=== PATIENT | male | born 1950 | race Caucasian/White ===

== ENCOUNTER 2020-02-03 02:43 | Inpatient (IN) | payer OTHER ==
[~2020-02-03] VITALS: Ht 167.6 cm; Wt 82.4 kg
[2020-02-03] VITALS (11 sets, daily range): BP systolic 81–200; BP diastolic 54–110
[2020-02-03] MEDS ORDERED: ASPIR 8181 MG PO (03:23)
[2020-02-03] MEDS ORDERED: ENALAPRIL MALEA20 MG PO (03:24)
[2020-02-03] MEDS ORDERED: ATORVASTATIN CA40 M1 PO (03:24)
[2020-02-03 03:29] LABS: BASOPHIL % 0.3 % (0-2); PLATELET COUNT 269 x10^3mcL (130-400); RED CELL DISTRIBUTION WIDTH 13.8 % (11.5-14.5)
[2020-02-03 03:39] LABS: UA SPECIFIC GRAVITY 1.025 (1.005-1.035); microscopic required? YES; urine erythrocyte NEGATIVE (NEGATIVE)
[2020-02-03 04:05] LABS: CALCIUM 7.7 mg/dL (8.5-10.1); CARBON DIOXIDE 25.5 mmol/L (21-32); CHLORIDE SERUM 99 mmol/L (98-107); CREATININE SERUM 1.4 mg/dL (0.7-1.3); GFR1 53 mL/min; GLUCOSE SERUM 155 mg/dL (74-106); POTASSIUM SERUM 4.1 mmol/L (3.5-5.1); SODIUM SERUM 135 mmol/L (136-145)
[2020-02-03 04:09] LABS: ALKALINE PHOSPHATASE 110 U/L (46-116); ALT/SGPT 54 U/L (16-63); AST/SGOT 79 U/L (15-37); BILIRUBIN TOTAL 1.1 mg/dL (0.20-1.00); TOTAL PROTEIN, SERUM 7.3 g/dL (6.4-8.2)
[2020-02-03 04:11] LABS: ALBUMIN 2.8 g/dL (3.4-5.0); LACTIC DEHYDROGENASE (LDH) 867 U/L (100-190)
[2020-02-04] VITALS (18 sets, daily range): BP systolic 81–159; BP diastolic 53–86
[2020-02-04 05:22] LABS: BASOPHIL % 0.1 % (0-2); PLATELET COUNT 139 x10^3mcL (130-400); RED CELL DISTRIBUTION WIDTH 13.9 % (11.5-14.5)
[2020-02-04 05:34] LABS: CALCIUM 7.2 mg/dL (8.5-10.1); CARBON DIOXIDE 23.7 mmol/L (21-32); CHLORIDE SERUM 105 mmol/L (98-107); CREATININE SERUM 1.1 mg/dL (0.7-1.3); GFR1 > 60 mL/min; GLUCOSE SERUM 128 mg/dL (74-106); MAGNESIUM 2.4 mg/dL (1.8-2.4); PHOSPHOROUS 2.7 mg/dL (2.5-4.9); POTASSIUM SERUM 4.5 mmol/L (3.5-5.1); SODIUM SERUM 137 mmol/L (136-145)
[2020-02-05] VITALS (17 sets, daily range): BP systolic 85–166; BP diastolic 55–85
[2020-02-05 06:00] LABS: PLATELET COUNT 182 x10^3mcL (130-400)
[2020-02-05 06:02] LABS: CALCIUM 7.5 mg/dL (8.5-10.1); CHLORIDE SERUM 105 mmol/L (98-107); GFR1 > 60 mL/min; GLUCOSE SERUM 188 mg/dL (74-106); SODIUM SERUM 139 mmol/L (136-145)
[2020-02-05 06:06] LABS: BASOPHIL % 0 % (0-2)
[2020-02-06] VITALS (18 sets, daily range): BP systolic 86–139; BP diastolic 49–68
[2020-02-06 05:18] LABS: PLATELET COUNT 217 x10^3mcL (130-400); RED CELL DISTRIBUTION WIDTH 14.1 % (11.5-14.5)
[2020-02-06 05:19] LABS: BASOPHIL % 0 % (0-2)
[2020-02-06 05:31] LABS: CALCIUM 7.6 mg/dL (8.5-10.1); CARBON DIOXIDE 28.9 mmol/L (21-32); CHLORIDE SERUM 107 mmol/L (98-107); CREATININE SERUM 1.2 mg/dL (0.7-1.3); GFR1 > 60 mL/min; GLUCOSE SERUM 233 mg/dL (74-106); POTASSIUM SERUM 4.6 mmol/L (3.5-5.1); SODIUM SERUM 141 mmol/L (136-145)
[2020-02-06 05:43] LABS: BILIRUBIN DIRECT 0.38 mg/dL (0.0-0.2); BILIRUBIN TOTAL 0.64 mg/dL (0.20-1.00)
[2020-02-06 05:53] LABS: TOTAL PROTEIN, SERUM 5.7 g/dL (6.4-8.2)
[2020-02-07] VITALS (16 sets, daily range): BP systolic 91–150; BP diastolic 50–73
[2020-02-07 05:12] LABS: CALCIUM 7.5 mg/dL (8.5-10.1); CARBON DIOXIDE 28.7 mmol/L (21-32); CHLORIDE SERUM 109 mmol/L (98-107); CREATININE SERUM 1.2 mg/dL (0.7-1.3); GFR1 > 60 mL/min; GLUCOSE SERUM 242 mg/dL (74-106); POTASSIUM SERUM 4.4 mmol/L (3.5-5.1); SODIUM SERUM 144 mmol/L (136-145)
[2020-02-07 05:18] LABS: BASOPHIL % 0.2 % (0-2); PLATELET COUNT 243 x10^3mcL (130-400); RED CELL DISTRIBUTION WIDTH 13.9 % (11.5-14.5)
[2020-02-08] VITALS (18 sets, daily range): BP systolic 90–175; BP diastolic 50–100
[2020-02-08 06:36] LABS: PLATELET COUNT 277 x10^3mcL (130-400); RED CELL DISTRIBUTION WIDTH 14.1 % (11.5-14.5)
[2020-02-08 06:42] LABS: BASOPHIL % 0 % (0-2)
[2020-02-08 07:11] LABS: CALCIUM 7.6 mg/dL (8.5-10.1); CARBON DIOXIDE 26.4 mmol/L (21-32); CHLORIDE SERUM 110 mmol/L (98-107); CREATININE SERUM 1.2 mg/dL (0.7-1.3); GFR1 > 60 mL/min; GLUCOSE SERUM 324 mg/dL (74-106); POTASSIUM SERUM 4.5 mmol/L (3.5-5.1); SODIUM SERUM 147 mmol/L (136-145)
[2020-02-09] VITALS (17 sets, daily range): BP systolic 92–189; BP diastolic 63–99
[2020-02-09 04:59] LABS: PLATELET COUNT 292 x10^3mcL (130-400); RED CELL DISTRIBUTION WIDTH 14.4 % (11.5-14.5)
[2020-02-09 05:01] LABS: BASOPHIL % 0 % (0-2)
[2020-02-09 05:14] LABS: CALCIUM 8.1 mg/dL (8.5-10.1); CARBON DIOXIDE 26.8 mmol/L (21-32); CHLORIDE SERUM 113 mmol/L (98-107); CREATININE SERUM 1.1 mg/dL (0.7-1.3); GFR1 > 60 mL/min; GLUCOSE SERUM 418 mg/dL (74-106); POTASSIUM SERUM 4.9 mmol/L (3.5-5.1); SODIUM SERUM 148 mmol/L (136-145)
[2020-02-10] VITALS (17 sets, daily range): BP systolic 99–186; BP diastolic 56–87
[2020-02-10 06:48] LABS: BASOPHIL % 0.2 % (0-2); PLATELET COUNT 276 x10^3mcL (130-400)
[2020-02-10 07:24] LABS: CALCIUM 7.9 mg/dL (8.5-10.1); CARBON DIOXIDE 29.7 mmol/L (21-32); CHLORIDE SERUM 112 mmol/L (98-107); CREATININE SERUM 1.1 mg/dL (0.7-1.3); GFR1 > 60 mL/min; SODIUM SERUM 148 mmol/L (136-145)
[2020-02-10 07:43] LABS: RED CELL DISTRIBUTION WIDTH 14.8 % (11.5-14.5)
[2020-02-10 07:53] LABS: GLUCOSE SERUM 462 mg/dL (74-106)
[2020-02-11] VITALS (20 sets, daily range): BP systolic 101–187; BP diastolic 60–94
[2020-02-11 06:33] LABS: BASOPHIL % 0.2 % (0-2); PLATELET COUNT 339 x10^3mcL (130-400)
[2020-02-11 06:36] LABS: CALCIUM 8.1 mg/dL (8.5-10.1); CARBON DIOXIDE 30.9 mmol/L (21-32); CHLORIDE SERUM 116 mmol/L (98-107); CREATININE SERUM 1.1 mg/dL (0.7-1.3); GFR1 > 60 mL/min; GLUCOSE SERUM 369 mg/dL (74-106); POTASSIUM SERUM 4.7 mmol/L (3.5-5.1); SODIUM SERUM 153 mmol/L (136-145)
[2020-02-11 06:49] LABS: RED CELL DISTRIBUTION WIDTH 14.7 % (11.5-14.5)
[2020-02-12] VITALS (17 sets, daily range): BP systolic 98–172; BP diastolic 59–82
[2020-02-12 05:56] LABS: BASOPHIL % 0.4 % (0-2); PLATELET COUNT 326 x10^3mcL (130-400)
[2020-02-12 06:04] LABS: RED CELL DISTRIBUTION WIDTH 14.9 % (11.5-14.5)
[2020-02-12 06:15] LABS: CALCIUM 7.9 mg/dL (8.5-10.1); CARBON DIOXIDE 30.2 mmol/L (21-32); CHLORIDE SERUM 115 mmol/L (98-107); CREATININE SERUM 0.9 mg/dL (0.7-1.3); GFR1 > 60 mL/min; GLUCOSE SERUM 318 mg/dL (74-106); POTASSIUM SERUM 4.5 mmol/L (3.5-5.1); SODIUM SERUM 151 mmol/L (136-145)
[2020-02-13] VITALS (19 sets, daily range): BP systolic 117–173; BP diastolic 61–89
[2020-02-13 05:03] LABS: PLATELET COUNT 264 x10^3mcL (130-400)
[2020-02-13 05:04] LABS: BASOPHIL % 4.6 % (0-2); RED CELL DISTRIBUTION WIDTH 14.9 % (11.5-14.5)
[2020-02-13 05:10] LABS: CALCIUM 8.4 mg/dL (8.5-10.1); CARBON DIOXIDE 31.1 mmol/L (21-32); CHLORIDE SERUM 116 mmol/L (98-107); CREATININE SERUM 0.9 mg/dL (0.7-1.3); GFR1 > 60 mL/min; GLUCOSE SERUM 356 mg/dL (74-106); SODIUM SERUM 150 mmol/L (136-145)
[2020-02-14] VITALS (17 sets, daily range): BP systolic 91–137; BP diastolic 53–71
[2020-02-14 05:29] LABS: PLATELET COUNT 241 x10^3mcL (130-400)
[2020-02-14 05:43] LABS: CALCIUM 8.3 mg/dL (8.5-10.1); CARBON DIOXIDE 30.6 mmol/L (21-32); CHLORIDE SERUM 116 mmol/L (98-107); CREATININE SERUM 0.9 mg/dL (0.7-1.3); GFR1 > 60 mL/min; GLUCOSE SERUM 382 mg/dL (74-106); POTASSIUM SERUM 5.2 mmol/L (3.5-5.1); SODIUM SERUM 150 mmol/L (136-145)
[2020-02-14 05:46] LABS: BASOPHIL % 0 % (0-2); RED CELL DISTRIBUTION WIDTH 14.7 % (11.5-14.5)
[2020-02-15] VITALS (18 sets, daily range): BP systolic 94–151; BP diastolic 54–86
[2020-02-15 05:26] LABS: BASOPHIL % 0.4 % (0-2); PLATELET COUNT 205 x10^3mcL (130-400)
[2020-02-15 05:40] LABS: CARBON DIOXIDE 30.2 mmol/L (21-32); CHLORIDE SERUM 116 mmol/L (98-107); GFR1 > 60 mL/min; GLUCOSE SERUM 347 mg/dL (74-106); POTASSIUM SERUM 4.6 mmol/L (3.5-5.1); SODIUM SERUM 150 mmol/L (136-145)
[2020-02-16] VITALS (17 sets, daily range): BP systolic 90–152; BP diastolic 50–72
[2020-02-16 05:17] LABS: BASOPHIL % 0.1 % (0-2); PLATELET COUNT 210 x10^3mcL (130-400)
[2020-02-16 05:18] LABS: RED CELL DISTRIBUTION WIDTH 14.9 % (11.5-14.5)
[2020-02-16 05:31] LABS: CALCIUM 8.2 mg/dL (8.5-10.1); CARBON DIOXIDE 29.3 mmol/L (21-32); CHLORIDE SERUM 117 mmol/L (98-107); CREATININE SERUM 0.9 mg/dL (0.7-1.3); GFR1 > 60 mL/min; GLUCOSE SERUM 308 mg/dL (74-106); POTASSIUM SERUM 4.5 mmol/L (3.5-5.1); SODIUM SERUM 150 mmol/L (136-145)
[2020-02-17] VITALS (18 sets, daily range): BP systolic 104–142; BP diastolic 57–74
[2020-02-17 05:43] LABS: BASOPHIL % 0.7 % (0-2); PLATELET COUNT 211 x10^3mcL (130-400)
[2020-02-17 06:00] LABS: CARBON DIOXIDE 29.6 mmol/L (21-32); CHLORIDE SERUM 114 mmol/L (98-107); CREATININE SERUM 0.8 mg/dL (0.7-1.3); GFR1 > 60 mL/min; GLUCOSE SERUM 264 mg/dL (74-106); POTASSIUM SERUM 4.3 mmol/L (3.5-5.1); SODIUM SERUM 147 mmol/L (136-145)
[2020-02-18] VITALS (14 sets, daily range): BP systolic 94–157; BP diastolic 53–77; Ht 167.6 cm; Wt 82.4 kg
[2020-02-18 05:22] LABS: CALCIUM 7.7 mg/dL (8.5-10.1); CARBON DIOXIDE 28.6 mmol/L (21-32); CHLORIDE SERUM 111 mmol/L (98-107); CREATININE SERUM 0.8 mg/dL (0.7-1.3); GFR1 > 60 mL/min; GLUCOSE SERUM 310 mg/dL (74-106); POTASSIUM SERUM 4.4 mmol/L (3.5-5.1); SODIUM SERUM 142 mmol/L (136-145)
[2020-02-18 05:46] LABS: BASOPHIL % 0.1 % (0-2); PLATELET COUNT 178 x10^3mcL (130-400)
[2020-02-18 05:51] LABS: RED CELL DISTRIBUTION WIDTH 15.5 % (11.5-14.5)
[2020-02-19] VITALS (18 sets, daily range): BP systolic 74–168; BP diastolic 42–66
[2020-02-19 06:16] LABS: BASOPHIL % 0 % (0-2); PLATELET COUNT 122 x10^3mcL (130-400); RED CELL DISTRIBUTION WIDTH 15.2 % (11.5-14.5)
[2020-02-19 06:27] LABS: C REACTIVE PROTEIN 2.2 mg/dL (<=0.9); CALCIUM 7.4 mg/dL (8.5-10.1); CARBON DIOXIDE 25.3 mmol/L (21-32); CHLORIDE SERUM 105 mmol/L (98-107); CREATININE SERUM 0.7 mg/dL (0.7-1.3); GFR1 > 60 mL/min; POTASSIUM SERUM 3.7 mmol/L (3.5-5.1); SODIUM SERUM 136 mmol/L (136-145)
[2020-02-19 06:59] LABS: GLUCOSE SERUM 487 mg/dL (74-106)
[2020-02-20] VITALS (18 sets, daily range): BP systolic 98–180; BP diastolic 35–74
[2020-02-20 05:00] LABS: CALCIUM 7.6 mg/dL (8.5-10.1); CARBON DIOXIDE 28.9 mmol/L (21-32); CHLORIDE SERUM 110 mmol/L (98-107); GFR1 > 60 mL/min; GLUCOSE SERUM 296 mg/dL (74-106); POTASSIUM SERUM 4.3 mmol/L (3.5-5.1); SODIUM SERUM 141 mmol/L (136-145)
[2020-02-20 05:18] LABS: BASOPHIL % 0.1 % (0-2); PLATELET COUNT 186 x10^3mcL (130-400)
[2020-02-20 05:38] LABS: RED CELL DISTRIBUTION WIDTH 15.2 % (11.5-14.5)
[2020-02-21] VITALS (18 sets, daily range): BP systolic 101–117; BP diastolic 46–63
[2020-02-21 05:06] LABS: PLATELET COUNT 142 x10^3mcL (130-400)
[2020-02-21 05:15] LABS: CALCIUM 7.7 mg/dL (8.5-10.1); CARBON DIOXIDE 29.5 mmol/L (21-32); CHLORIDE SERUM 111 mmol/L (98-107); CREATININE SERUM 0.9 mg/dL (0.7-1.3); GFR1 > 60 mL/min; GLUCOSE SERUM 317 mg/dL (74-106); SODIUM SERUM 142 mmol/L (136-145)
[2020-02-21 05:16] LABS: BASOPHIL % 0 % (0-2); RED CELL DISTRIBUTION WIDTH 15.6 % (11.5-14.5)
[2020-02-22] VITALS (16 sets, daily range): BP systolic 97–128; BP diastolic 45–58
[2020-02-22 06:15] LABS: PLATELET COUNT 176 x10^3mcL (130-400)
[2020-02-22 06:23] LABS: CALCIUM 7.8 mg/dL (8.5-10.1); CARBON DIOXIDE 29.7 mmol/L (21-32); CHLORIDE SERUM 111 mmol/L (98-107); CREATININE SERUM 1.1 mg/dL (0.7-1.3); GFR1 > 60 mL/min; GLUCOSE SERUM 248 mg/dL (74-106); POTASSIUM SERUM 4.7 mmol/L (3.5-5.1); SODIUM SERUM 144 mmol/L (136-145)
[2020-02-22 13:47] LABS: SEGMENTED NEUTROPHILS 90 % (37-75)
[2020-02-22 13:48] LABS: BAND NEUTROPHIL 3 % (0-10); MONOCYTE 2 % (0-7); PLATELET MORPHOLOGY LARGE PLATELET SEEN; rbc morphology (normal/abnorm) ABNORMAL (NORMAL)
[2020-02-23] VITALS (15 sets, daily range): BP systolic 94–124; BP diastolic 44–62
[2020-02-23 09:15] LABS: BASOPHIL % 0.1 % (0-2); PLATELET COUNT 132 x10^3mcL (130-400)
[2020-02-23 09:18] LABS: RED CELL DISTRIBUTION WIDTH 16.7 % (11.5-14.5)
[2020-02-23 09:46] LABS: CALCIUM 7.7 mg/dL (8.5-10.1); CARBON DIOXIDE 29.1 mmol/L (21-32); CHLORIDE SERUM 115 mmol/L (98-107); CREATININE SERUM 0.8 mg/dL (0.7-1.3); GFR1 > 60 mL/min; GLUCOSE SERUM 223 mg/dL (74-106); MAGNESIUM 2.3 mg/dL (1.8-2.4); PHOSPHOROUS 2.9 mg/dL (2.5-4.9); POTASSIUM SERUM 4.3 mmol/L (3.5-5.1); SODIUM SERUM 147 mmol/L (136-145)
[2020-02-24] VITALS (15 sets, daily range): BP systolic 94–119; BP diastolic 44–56
[2020-02-24 05:55] LABS: BASOPHIL % 0 % (0-2); PLATELET COUNT 121 x10^3mcL (130-400); RED CELL DISTRIBUTION WIDTH 16.8 % (11.5-14.5)
[2020-02-24 05:55] LABS: microscopic required? NO
[2020-02-24 06:33] LABS: UA SPECIFIC GRAVITY 1.025 (1.005-1.035); urine erythrocyte NEGATIVE (NEGATIVE)
[2020-02-24 09:50] LABS: CALCIUM 7.1 mg/dL (8.5-10.1); CARBON DIOXIDE 27.7 mmol/L (21-32); CHLORIDE SERUM 112 mmol/L (98-107); CREATININE SERUM 0.9 mg/dL (0.7-1.3); GFR1 > 60 mL/min; GLUCOSE SERUM 351 mg/dL (74-106); POTASSIUM SERUM 5.1 mmol/L (3.5-5.1); SODIUM SERUM 146 mmol/L (136-145)
[2020-02-25] VITALS (17 sets, daily range): BP systolic 95–199; BP diastolic 53–80
[2020-02-25 06:13] LABS: BASOPHIL % 1.4 % (0-2); PLATELET COUNT 131 x10^3mcL (130-400)
[2020-02-25 06:53] LABS: CALCIUM 7.3 mg/dL (8.5-10.1); CARBON DIOXIDE 28.9 mmol/L (21-32); CHLORIDE SERUM 112 mmol/L (98-107); CREATININE SERUM 0.8 mg/dL (0.7-1.3); GFR1 > 60 mL/min; GLUCOSE SERUM 302 mg/dL (74-106); POTASSIUM SERUM 4.4 mmol/L (3.5-5.1); SODIUM SERUM 147 mmol/L (136-145)
[2020-02-25 07:10] LABS: RED CELL DISTRIBUTION WIDTH 18.1 % (11.5-14.5)
[2020-02-26] VITALS (15 sets, daily range): BP systolic 107–128; BP diastolic 46–59
[2020-02-26 06:47] LABS: BASOPHIL % 0.1 % (0-2); PLATELET COUNT 137 x10^3mcL (130-400)
[2020-02-26 06:49] LABS: CALCIUM 7.6 mg/dL (8.5-10.1); CARBON DIOXIDE 30.1 mmol/L (21-32); CHLORIDE SERUM 111 mmol/L (98-107); CREATININE SERUM 0.9 mg/dL (0.7-1.3); GFR1 > 60 mL/min; GLUCOSE SERUM 245 mg/dL (74-106); POTASSIUM SERUM 4.7 mmol/L (3.5-5.1); SODIUM SERUM 145 mmol/L (136-145)
[2020-02-26 07:23] LABS: RED CELL DISTRIBUTION WIDTH 17.6 % (11.5-14.5)
[2020-02-27] VITALS (13 sets, daily range): BP systolic 92–128; BP diastolic 48–59
[2020-02-27 05:50] LABS: CALCIUM 7.5 mg/dL (8.5-10.1); CARBON DIOXIDE 32.3 mmol/L (21-32); CHLORIDE SERUM 110 mmol/L (98-107); CREATININE SERUM 0.8 mg/dL (0.7-1.3); GFR1 > 60 mL/min; GLUCOSE SERUM 228 mg/dL (74-106); POTASSIUM SERUM 4.4 mmol/L (3.5-5.1); SODIUM SERUM 145 mmol/L (136-145)
[2020-02-27 06:11] LABS: BASOPHIL % 0 % (0-2); PLATELET COUNT 149 x10^3mcL (130-400); RED CELL DISTRIBUTION WIDTH 18.1 % (11.5-14.5)
[2020-02-28] VITALS (14 sets, daily range): BP systolic 104–160; BP diastolic 48–69
[2020-02-28 06:10] LABS: CALCIUM 7.5 mg/dL (8.5-10.1); CARBON DIOXIDE 32.1 mmol/L (21-32); CHLORIDE SERUM 109 mmol/L (98-107); CREATININE SERUM 0.7 mg/dL (0.7-1.3); GFR1 > 60 mL/min; GLUCOSE SERUM 213 mg/dL (74-106); SODIUM SERUM 144 mmol/L (136-145)
[2020-02-28 06:19] LABS: BASOPHIL % 0.1 % (0-2); PLATELET COUNT 175 x10^3mcL (130-400); RED CELL DISTRIBUTION WIDTH 17.7 % (11.5-14.5)
[2020-02-29] VITALS (15 sets, daily range): BP systolic 105–144; BP diastolic 54–74
[2020-02-29 07:33] LABS: BASOPHIL % 0.6 % (0-2); PLATELET COUNT 175 x10^3mcL (130-400)
[2020-02-29 07:52] LABS: CALCIUM 7.3 mg/dL (8.5-10.1); CARBON DIOXIDE 29.2 mmol/L (21-32); CHLORIDE SERUM 108 mmol/L (98-107); CREATININE SERUM 0.6 mg/dL (0.7-1.3); GFR1 > 60 mL/min; GLUCOSE SERUM 217 mg/dL (74-106); POTASSIUM SERUM 4.3 mmol/L (3.5-5.1); SODIUM SERUM 142 mmol/L (136-145)
[2020-02-29 07:54] LABS: RED CELL DISTRIBUTION WIDTH 18.7 % (11.5-14.5)
[2020-03-01] VITALS (15 sets, daily range): BP systolic 92–154; BP diastolic 49–79
[2020-03-01 06:36] LABS: BASOPHIL % 0.2 % (0-2); PLATELET COUNT 225 x10^3mcL (130-400)
[2020-03-01 06:48] LABS: CALCIUM 7.6 mg/dL (8.5-10.1); CARBON DIOXIDE 32.6 mmol/L (21-32); CHLORIDE SERUM 102 mmol/L (98-107); CREATININE SERUM 0.6 mg/dL (0.7-1.3); GFR1 > 60 mL/min; GLUCOSE SERUM 171 mg/dL (74-106); POTASSIUM SERUM 3.6 mmol/L (3.5-5.1); SODIUM SERUM 138 mmol/L (136-145)
[2020-03-01 07:00] LABS: RED CELL DISTRIBUTION WIDTH 19.2 % (11.5-14.5)
[2020-03-02] VITALS (14 sets, daily range): BP systolic 132–154; BP diastolic 61–88
[2020-03-02 06:25] LABS: BASOPHIL % 0.2 % (0-2); PLATELET COUNT 239 x10^3mcL (130-400)
[2020-03-02 06:37] LABS: CALCIUM 7.5 mg/dL (8.5-10.1); CARBON DIOXIDE 31.9 mmol/L (21-32); CHLORIDE SERUM 103 mmol/L (98-107); CREATININE SERUM 0.5 mg/dL (0.7-1.3); GFR1 > 60 mL/min; GLUCOSE SERUM 148 mg/dL (74-106); POTASSIUM SERUM 3.9 mmol/L (3.5-5.1); SODIUM SERUM 137 mmol/L (136-145)
[2020-03-02 07:14] LABS: RED CELL DISTRIBUTION WIDTH 19.3 % (11.5-14.5)
[2020-03-03] VITALS (17 sets, daily range): BP systolic 94–137; BP diastolic 46–75
[2020-03-03 05:46] LABS: BASOPHIL % 0.1 % (0-2); PLATELET COUNT 242 x10^3mcL (130-400)
[2020-03-03 05:47] LABS: RED CELL DISTRIBUTION WIDTH 19.4 % (11.5-14.5)
[2020-03-03 06:17] LABS: ALKALINE PHOSPHATASE 87 U/L (46-116); ALT/SGPT 57 U/L (16-63); AST/SGOT 29 U/L (15-37); BILIRUBIN TOTAL 0.37 mg/dL (0.20-1.00); CALCIUM 7.3 mg/dL (8.5-10.1); CARBON DIOXIDE 31.9 mmol/L (21-32); CHLORIDE SERUM 105 mmol/L (98-107); CREATININE SERUM 0.6 mg/dL (0.7-1.3); GFR1 > 60 mL/min; GLUCOSE SERUM 160 mg/dL (74-106); POTASSIUM SERUM 4.4 mmol/L (3.5-5.1); SODIUM SERUM 137 mmol/L (136-145)
[2020-03-03 06:18] LABS: ALBUMIN 1.5 g/dL (3.4-5.0); TOTAL PROTEIN, SERUM 5.2 g/dL (6.4-8.2)
[2020-03-04] VITALS (16 sets, daily range): BP systolic 92–137; BP diastolic 52–72
[2020-03-04 06:06] LABS: PLATELET COUNT 247 x10^3mcL (130-400)
[2020-03-04 06:17] LABS: BASOPHIL % 0 % (0-2); RED CELL DISTRIBUTION WIDTH 19.9 % (11.5-14.5)
[2020-03-04 06:18] LABS: CALCIUM 7.3 mg/dL (8.5-10.1); CARBON DIOXIDE 33.1 mmol/L (21-32); CHLORIDE SERUM 104 mmol/L (98-107); CREATININE SERUM 0.5 mg/dL (0.7-1.3); GFR1 > 60 mL/min; GLUCOSE SERUM 165 mg/dL (74-106); POTASSIUM SERUM 3.8 mmol/L (3.5-5.1); SODIUM SERUM 138 mmol/L (136-145)
[2020-03-05] VITALS (16 sets, daily range): BP systolic 108–155; BP diastolic 60–82
[2020-03-05 05:33] LABS: BASOPHIL % 0.4 % (0-2); PLATELET COUNT 278 x10^3mcL (130-400); RED CELL DISTRIBUTION WIDTH 20.1 % (11.5-14.5)
[2020-03-05 05:45] LABS: CALCIUM 7.2 mg/dL (8.5-10.1); CARBON DIOXIDE 33.1 mmol/L (21-32); CHLORIDE SERUM 107 mmol/L (98-107); CREATININE SERUM 0.5 mg/dL (0.7-1.3); GFR1 > 60 mL/min; GLUCOSE SERUM 76 mg/dL (74-106); POTASSIUM SERUM 4.1 mmol/L (3.5-5.1); SODIUM SERUM 141 mmol/L (136-145)
[2020-03-06] VITALS (15 sets, daily range): BP systolic 91–159; BP diastolic 54–78
[2020-03-06 05:45] LABS: CALCIUM 7.5 mg/dL (8.5-10.1); CHLORIDE SERUM 106 mmol/L (98-107); CREATININE SERUM 0.6 mg/dL (0.7-1.3); GFR1 > 60 mL/min; GLUCOSE SERUM 147 mg/dL (74-106); POTASSIUM SERUM 4.3 mmol/L (3.5-5.1); SODIUM SERUM 140 mmol/L (136-145)
[2020-03-06 05:51] LABS: BASOPHIL % 0.3 % (0-2); PLATELET COUNT 303 x10^3mcL (130-400); RED CELL DISTRIBUTION WIDTH 20.2 % (11.5-14.5)
[2020-03-07] VITALS (14 sets, daily range): BP systolic 86–114; BP diastolic 48–74
[2020-03-07 06:39] LABS: BASOPHIL % 0.3 % (0-2); PLATELET COUNT 310 x10^3mcL (130-400)
[2020-03-07 07:07] LABS: CALCIUM 7.7 mg/dL (8.5-10.1); CARBON DIOXIDE 34.4 mmol/L (21-32); CHLORIDE SERUM 107 mmol/L (98-107); CREATININE SERUM 0.5 mg/dL (0.7-1.3); GFR1 > 60 mL/min; GLUCOSE SERUM 75 mg/dL (74-106); POTASSIUM SERUM 3.8 mmol/L (3.5-5.1); SODIUM SERUM 144 mmol/L (136-145)
[2020-03-08] VITALS (14 sets, daily range): BP systolic 91–137; BP diastolic 55–74
[2020-03-08 06:14] LABS: BASOPHIL % 0.3 % (0-2); PLATELET COUNT 298 x10^3mcL (130-400); RED CELL DISTRIBUTION WIDTH 19.5 % (11.5-14.5)
[2020-03-08 06:57] LABS: CALCIUM 7.5 mg/dL (8.5-10.1); CHLORIDE SERUM 105 mmol/L (98-107); CREATININE SERUM 0.5 mg/dL (0.7-1.3); GFR1 > 60 mL/min; GLUCOSE SERUM 150 mg/dL (74-106); SODIUM SERUM 140 mmol/L (136-145)
[2020-03-09] VITALS (7 sets, daily range): BP systolic 104–124; BP diastolic 60–75
[2020-03-09 08:02] LABS: CALCIUM 7.6 mg/dL (8.5-10.1); CARBON DIOXIDE 28.2 mmol/L (21-32); CHLORIDE SERUM 108 mmol/L (98-107); CREATININE SERUM 0.4 mg/dL (0.7-1.3); GFR1 > 60 mL/min; GLUCOSE SERUM 70 mg/dL (74-106); SODIUM SERUM 142 mmol/L (136-145)
[2020-03-09 08:03] LABS: BASOPHIL % 0.3 % (0-2); PLATELET COUNT 285 x10^3mcL (130-400)
[2020-03-09 08:18] LABS: RED CELL DISTRIBUTION WIDTH 19.5 % (11.5-14.5)
[2020-03-10 04:45] VITALS: BP 135/79
[2020-03-10 07:50] VITALS: BP 135/72
[2020-03-10 10:00] VITALS: BP 125/80
[2020-03-10 12:37] VITALS: BP 145/91
[2020-03-10 16:30] VITALS: BP 109/74
[2020-03-10 19:16] VITALS: BP 109/74
== END 2020-03-10 20:50 | DRG 4 ==
LOC: ED 02:43 → IC 03:12 → DU 03-09 01:31
PROVIDERS: Emergency Medicine; Internal Medicine Infectious Disease; ADMIT Internal Medicine; ATTEND Internal Medicine
PROC: 5A1955Z Respiratory Ventilation, Greater than 96 Consecutive Hours (ICD-10-PCS; 2020-02-03)
PROC: 0BH17EZ Insertion of Endotracheal Airway into Trachea, Via Natural or Artificial Opening (ICD-10-PCS; 2020-02-03)
PROC: 30233K1 Transfusion of Nonautologous Frozen Plasma into Peripheral Vein, Percutaneous Approach (ICD-10-PCS; 2020-02-05)
PROC: 02HV33Z Insertion of Infusion Device into Superior Vena Cava, Percutaneous Approach (ICD-10-PCS; 2020-02-05)
PROC: B548ZZA Ultrasonography of Superior Vena Cava, Guidance (ICD-10-PCS; 2020-02-05)
PROC: 02HV33Z Insertion of Infusion Device into Superior Vena Cava, Percutaneous Approach (ICD-10-PCS; 2020-02-19)
PROC: B548ZZA Ultrasonography of Superior Vena Cava, Guidance (ICD-10-PCS; 2020-02-19)
PROC: 0B113F4 Bypass Trachea to Cutaneous with Tracheostomy Device, Percutaneous Approach (ICD-10-PCS; 2020-03-05)
PROC: 0DH63UZ Insertion of Feeding Device into Stomach, Percutaneous Approach (ICD-10-PCS; 2020-03-05)
PROC: 02HV33Z Insertion of Infusion Device into Superior Vena Cava, Percutaneous Approach (ICD-10-PCS; principal; 2020-03-08)
PROC: B548ZZA Ultrasonography of Superior Vena Cava, Guidance (ICD-10-PCS; 2020-03-08)
DX: U07.1 COVID-19 (principal); J96.01 Acute respiratory failure with hypoxia; I10 Essential (primary) hypertension; E78.5 Hyperlipidemia, unspecified; Z71.3 Dietary counseling and surveillance; E66.01 Morbid (severe) obesity due to excess calories; Z68.31 Body mass index [BMI] 31.0-31.9, adult; I95.9 Hypotension, unspecified; E11.65 Type 2 diabetes mellitus with hyperglycemia
CPT/HCPCS: 36556; 36600; 43235; 82962; 83880; 85378; 87804; A4628; G0378; J0456; J0696; J1100; J1642; J1650; J1815; J1940; J2001; J2060; J2185; J2250; J2270; J2405; J2543; J2550; J2704; J2920; J2997; J3010; J3370; J3490; J7030; J7040; J7042; J7050; Q0092; U0003-CS